=== PATIENT | male | born 1985 | race Caucasian/White ===

== ENCOUNTER 2017-08-03 20:59 | Emergency (ER) | payer BC ==
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
== END 2017-08-03 21:44 | disposition home or self-care (01) ==
LOC: MW.ED 20:59
DX: M54.2 Cervicalgia (principal); Z79.899 Other long term (current) drug therapy; V49.88XA Car occupant (driver) (passenger) injured in other specified transport accidents, initial encounter; Y92.410 Unspecified street and highway as the place of occurrence of the external cause
CPT/HCPCS: 72125; 72125-26; 99284; 99284-25